=== PATIENT | female | born 1980 | race African-American/Black ===

== ENCOUNTER 2023-04-30 12:33 | Emergency (ER) | payer BC ==
[2023-04-30] MEDS ORDERED: Dexamethasone 10 MG/ML VIAL ONE (14:05)
== END 2023-04-30 14:12 | disposition home or self-care (01) ==
LOC: CSHERS 12:33
DX: J06.9 Acute upper respiratory infection, unspecified (principal); E11.9 Type 2 diabetes mellitus without complications; I10 Essential (primary) hypertension; F17.210 Nicotine dependence, cigarettes, uncomplicated; Z79.4 Long term (current) use of insulin
CPT/HCPCS: 96372; 99283; J1100

== ENCOUNTER 2024-12-05 13:27 | Emergency (ER) | payer OTHER ==
[2024-12-05] MEDS ORDERED: Cyclobenzaprine 10 MG TAB ONE (14:40)
== END 2024-12-05 14:45 | disposition home or self-care (01) ==
LOC: CSHERS 13:27
DX: M79.89 Other specified soft tissue disorders (principal); E11.9 Type 2 diabetes mellitus without complications; K21.9 Gastro-esophageal reflux disease without esophagitis; E66.9 Obesity, unspecified; I10 Essential (primary) hypertension; Z79.4 Long term (current) use of insulin; Z79.899 Other long term (current) drug therapy